=== PATIENT | male | born 1950 | race Caucasian/White ===

== ENCOUNTER → 2024-10-14 09:02 | Outpatient (CLI) | payer MEDICARE, OTHER, SELFPAY ==
--- NOTE | 2024-10-14 09:30 | EKG_ITS ---
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
[2024-10-14 09:31] LABS: Add Manual Diff / Slide Review NO; Hematocrit 46.0 % (41-53); Hemoglobin 16.2 g/dL (13.5-17.5); Lymphocytes Absolute Auto 1200 /uL (1100-4500); Mean Corpuscular HGB Conc 35.3 % (30-36); Mean Corpuscular Hemoglobin 34.6 PG (26-34); Mean Corpuscular Volume 98.0 fL (80-100); Platelet Count 173 X10^3/uL (150-400)
[2024-10-14 09:36] LABS: Hemoglobin A1C% w Est Avg Glu 5.6 % (4.0-6.0)
[2024-10-14 09:49] LABS: Albumin 4.5 g/dL (3.5-5.0); Chloride 105 mmol/L (98-107); Sodium 139 mmol/L (137-145)
[2024-10-14 10:06] LABS: Blood Urea Nitrogen 15 mg/dL (9-20); Calcium 9.5 mg/dL (8.4-10.2); Carbon Dioxide 27 mmol/L (22-32); Estimated Glomerular Filt Rate > 60 mL/min (>60); Glucose 98 mg/dL (70-99); HEMOLYSIS < 15 (0-50); Potassium 4.7 mmol/L (3.4-5.1); Vitamin D 25 Hydroxy (D3) 68.0 ng/mL (30.0-100.0)
[2024-10-14 10:15] LABS: Prealbumin 29.2 mg/dL (17.6-36.0)
== END ==
PROVIDERS: PCP Family Medicine; Referring Provider Orthopaedic Surgery Adult Reconstructive Orthopaedic Surgery; Visit Provider Orthopaedic Surgery Adult Reconstructive Orthopaedic Surgery
DX: Z01.818 Encounter for other preprocedural examination (principal); E11.9 Type 2 diabetes mellitus without complications; E55.9 Vitamin D deficiency, unspecified; Z01.812 Encounter for preprocedural laboratory examination
CPT/HCPCS: 36415; 80048; 82040; 82306; 83036; 84134; 85025; 93005

== ENCOUNTER 2024-12-19 11:48 | Day surgery (SDC) | payer MEDICARE, OTHER, SELFPAY ==
[2024-12-16 12:32] VITALS: BMI 27.5
[2024-12-19] VITALS (10 sets, daily range): BP systolic 95–135; BP diastolic 50–68; PULSE 73–90; RESP 14–19; TEMP 35.4–36.9; O2SAT 94–97; BMI 27.5
--- NOTE | 2024-12-19 | DI.RAD.S_ITS ---
PROCEDURE: XR HIP W PEL IF DONE LT 2V INDICATIONS: LT TOTAL HIP TECHNIQUE: AP pelvis and lateral view of the hip acquired. COMPARISON: [facility], [place], XR PELVIS 1-2V, 10/14/2024, 8:36. [facility], [place], XR HIP W PEL LT 2V, 12/19/2024, 14:58. FINDINGS: Bones: Patient is status post left total hip arthroplasty, with hardware components in expected positions. The hip joint appears congruent. The visualized bony structures appear intact. Soft tissues: Overlying postoperative changes are noted. No suspicious soft tissue densities. IMPRESSION: Expected post-operative appearance of a hip arthroplasty. Dictated by: Darren Bella M.D. on 12/20/2024 at 8:56 Approved by: Darren Bella M.D. on 12/20/2024 at 9:00
--- NOTE | 2024-12-19 07:50 | DI.RAD.S_ITS ---
PROCEDURE: XR HIP W PEL IF DONE LT 2V INDICATIONS: Left total hip arthroplasty. COMPARISON: None. FINDINGS: Seven intraoperative fluoroscopic spot images are submitted for left total hip arthroplasty, reported under separate operative report. Fluoroscopy dosimetry is not delineated. IMPRESSION: Intraoperative fluoroscopy. Dictated by: Harish Martin M.D. on 12/19/2024 at 16:45 Approved by: Harish Martin M.D. on 12/19/2024 at 16:47
[2024-12-19] MEDS: LACTATED RINGERS 1,000 ML 42 ML IV ×2 (12:48→19:05)
[2024-12-19] MEDS: ACETAMINOPHEN 325 MG TABLET 975 MG PO (12:50)
[2024-12-19] MEDS: MELOXICAM 7.5 MG TABLET 15 MG PO (12:50)
--- NOTE | 2024-12-19 13:02 | PM.PREOP ---
Pre-operative Note Interval Note History & Physical reviewed/Exam performed by Physician: Yes Changes to H&P: No
[2024-12-19] MEDS: TRANEXAMIC ACID 1,000 MG VIAL 1000 MG INJ ×2 (14:17→16:01)
--- NOTE | 2024-12-19 14:33 | SUR.OPER ---
Patient supine on padded [place] table, bilateral arms on padded arm boards at <90, both legs secured in padded traction boots and positioned per surgeon, padded post at patient's groin, pressure points checked and padded.
--- NOTE | 2024-12-19 14:40 | SUR.OPER ---
LAVAGE: 118ML HYDROGEN PEROXIDE, 44ML POVIDONE IODINE, NORMAL SALINE
[2024-12-19] MEDS: KETOROLAC 30 MG/ML VIAL IM (14:44)
--- NOTE | 2024-12-19 16:41 | PM.OP.1 ---
Operative Date/Time/Diagnoses Date of procedure: 12/19/24 Time of procedure: 15:00 Pre-op diagnosis: Left hip osteoarthritis Post-op diagnosis: same Procedure & Clinicians Procedure: Left total hip arthroplasty Same procedure(s) as scheduled: Yes Surgeon: Pablo Riley Assisted?: Yes Hide Or Skin Buffer: Noreen Jack Anesthesia Type: Spinal, Sedation and Local Operative Notes Findings: Severe arthritis Closure Type: primary Applied: implant(s) Estimated Blood Loss (mL): 250 Procedure in detail: 1. Left Uncemented Direct Anterior Conor Total Hip Arthroplasty (13288) 2. Computer-Assisted Musculoskeletal Surgical Navigational Orthopedic Procedure Using Fluoroscopic Image Guidance (0054T) Implants: G7 PPS size 56 cup?with a +5 liner Z1 femoral stem size 9 standard offset? 40 mm +3.5 ceramic femoral head? Procedure Summary: This 73-year-old male patient had a very short operative side relative to his nonoperative side coming into surgery so I utilized an offset liner to maximize leg length rastafari. The hip was fairly tight requiring a conjoined tendon release in order to access the femur. I initially trialed with a size 9 broach and found that it was excessively long and also appeared to be in valgus so I went down to a size 8 and trialed with a which was appropriate after I was able to get it further down the canal to reduce the length. On inspecting after trialing I found that the 8 was rotationally unstable and I could sink it even further down the canal so went back to a size 9 and was able to get that to sit at the spot where I had calcar planed from the size 8 before trialing. In this system upsizing the broach does not result in any change to the head or neck parameters so I therefore implanted those trials. Stability was excellent as I was unable to manually dislocate the hip with maximum external rotation of approximately 120? Procedure in Detail: This patient was seen preoperatively and evaluated for hip pain which was refractory to numerous nonoperative treatment modalities. Their hip pain correlated with radiographic changes demonstrating significant degeneration in the hip joint. The risks and benefits of continued nonoperative management versus operative management were discussed at length and all of the patient?s questions were answered. Additional educational materials providing further details beyond our discussion in clinic were provided via a publicly available patient education video which included the incidence of medical complications associated with total hip arthroplasty, reasons for revision following total hip arthroplasty, and patient satisfaction rates following total hip arthroplasty. With this understanding of the risks inherent to the procedure, the patient elected to move forward with operative management. Following preoperative optimization, the patient was scheduled for surgery. The patient was met in the preoperative holding area the day of the procedure and all questions were answered. The patient?s nares were swabbed in order to decolonize them from MRSA. Informed consent was signed and the left limb was marked with indelible ink.? The patient was brought back to the operating room where anesthesia was induced. The patient was transferred to the [place] table and all bony prominences were padded. The operative site was prepped and draped in the usual sterile fashion. Prior to incision, tranexamic acid and cefazolin were administered. Operative templating images were displayed demonstrating the anticipated implant sizes and correct operative extremity. A timeout procedure was performed verifying the patient?s identity, medical comorbidities, allergies, relevant medications, anesthesia type and the surgical plan. All present were in agreement. The assistance of a physician construction administrative assistant was required for positioning, room setup, soft tissue retraction and wound closure. Without this assistance, the procedure would have been significantly more challenging and time consuming.?? A direct anterior approach to the hip was utilized. This was performed with a longitudinal incision through a Heuter interval. The incision was planned 2 cm distal and 2 cm lateral to the ASIS extending towards the lateral patella, in line with the muscle body of the TFL. Following incision, the subcutaneous tissue was dissected while taking care to avoid injury to the lateral femoral cutaneous nerve. The fascia overlying the TFL was identified by dissecting off the overlying fat and identifying perforating vessels to the TFL. The TFL fascia was incised and dissected away from the medial border of the TFL. A retractor was placed over the superior femoral neck between the abductors and the hip capsule and used to reflect the TFL laterally. A Bureau self-retainer was then placed in the distal aspect of the wound between the TFL and the rectus femoris. This was tensioned to open up the direct anterior interval and the lateral circumflex vessels were identified and coagulated using electrocautery. The floor of the TFL fascia was incised, exposing the pericapsular fat overlying the hip capsule. A second cobra retractor was placed on the inferior femoral neck. A retractor was placed on the anterior wall of the acetabulum and used to tension the reflected head of rectus femoris, which was then released in order to limit soft tissue tension. A capsulotomy was made in the midline of the anterior hip capsule in line with the femoral neck ending at the vastus tubercle. The anterior retractor was removed as soon as the capsulotomy was completed in order to limit the amount of time that a soft tissue retractor remained on the anterior wall and limit tension on the femoral nerve. Tag stitches were placed in the superior and inferior leaflets of the hip capsule. An Joey soft tissue retractor was introduced over the tag stitches and tensioned in the interval between the rectus femoris and the TFL in order to retract and protect those muscles. The cobra retractors were replaced intracapsularly, with one over the superior neck in the pocket created by the base of the greater trochanter and the other on the femoral head. The capsulotomy was extended laterally to the base of the greater trochanter and medially to the lesser trochanter. This required externally rotating the hip. Once the lesser trochanter had been identified, a neck cut was planned according to measurements from preoperative templating. A ruler was cut at the length measured between the superior aspect of the lesser trochanter and the collar of the prosthesis. This line was extended towards the inferior aspect of the lateral cobra retractor to plan a cut which would leave minimal residual femoral neck laterally. The neck was cut at 60 degrees of external rotation along that line. A second cut was performed to remove a large napkin ring and facilitate head extraction. The napkin ring cut and femoral head were removed.?? A broad anterior wall retractor was placed between the labrum and the anterior capsule so that the anterior capsule would prevent capturing and pinching the femoral nerve anteriorly. An additional retractor was placed on the posterior wall. External rotation and traction were applied through the [place] table so that the cut surface of the femoral neck would not restrict access to the acetabulum. The labrum was excised sharply and the pulvinar was excised with electrocautery to limit bleeding from branches of the obturator artery. Acetabular reamers were selected based on preoperative templating and measurements of the excised femoral head. These were introduced into the acetabulum. Fluoroscopy was utilized to replicate a standing AP pelvis radiograph by centering over the pelvis, rotating until there was appropriate symmetry between the obturator foramen, and introducing caudal tilt to match the position of the pubic symphysis relative to the sacrococcygeal junction according to the patient?s anatomy. Once satisfied with the reaming depth corresponding to the preoperative template and the pinch fit between the columns, an appropriate sized acetabular cup was selected which would provide 1 mm of press-fit. This cup was introduced and manipulated until appropriate abduction and anteversion angles were obtained with careful attention to appropriate abduction and anteversion angles as evaluated by the position of the cup relative to the anterior and posterior wooten of the acetabulum and the AP fluoroscopy which recreated the patient?s standing radiograph. The cup was impacted into place. Peripheral osteophytes were removed. The acetabular liner was then placed with care to ensure locking of the locking mechanism. Attention was then turned to the femur. All retractors were removed, traction was released, a retractor was placed in the interval between the hip capsule and the gluteus minimus. The lateral capsule was released using electrocautery. Traction was released and a [place] hook was placed posteriorly around the proximal femur at the level of the vastus ridge. The table height was lowered in order to restrict the tension on the anterior structures during hip hyperextension to limit the risk of femoral nerve palsy. With traction off and the hip at 90 degrees of external rotation, the hip was hyperextended and adducted while manually elevating the femur away from the acetabulum with the [place] hook to avoid hooking the greater trochanter on the pelvis. An asymmetric retractor was placed over the calcar and a broad double-pronged retractor was placed over the greater trochanter. The tag stitch capturing the lateral leaflet of the capsule was moved to the medial side, leaving the conjoined and piriformis tendons isolated in the face of the greater trochanter. The hip was externally rotated and elevated. A release of the conjoined tendon was necessary in order to obtain adequate exposure for broaching. The canal was opened with an opening broach and a rasp was used to remove cancellous bone. A rongeur was used to remove the residual lateral bone at the base of the greater trochanter to avoid placing the stem in varus. The femur was then broached to the appropriate sized stem yielding good rotational fit and fill of the canal as well as appropriate version of the stem trial. Neck and head trials were placed, all retractors were removed and the hip was returned to neutral abduction and extension. I then reduced the hip and manually trialed it before changing surgical gloves. Initial trialing was performed with a size 9 broach, a standard offset neck and a +3.5 head. It was very hard to reduce. It was very tight. I initially manually externally rotated the hip and found that I could not rotate past 90?. I then locked the hip in 45 degrees of external rotation and dropped it to the floor with traction off which demonstrated no instability. The ortho grid software was used to create an overlay comparing the nonoperative side of the operative side and this demonstrated almost exactly the same offset but increased leg length on the operative side. AP and lateral hip fluoroscopic images were obtained to evaluate the broach size which demonstrated that the broach was sitting proud relative to where I had planned the calcar to sit and the stem was in valgus. The hip was dislocated and I returned to the broaching position. Based on my evaluation during initial trialing I planned to sink the size 8 broach further down the canal and calcar planed to that point in order to reduce my leg lengths. I did this. I calcar planed approximately 6 mm of additional bone. I repeated the trialing process and still had very good stability. I still required assistance through the [place] table to get the hip reduced as I was unable to reduce it by pushing on the foot. There was no instability with trialing either with maximum external rotation or with a 45 degree drop test. The ortho grid overlay between the operative and nonoperative sides was nearly identical. I therefore planned to place the size. Upon returning of the broach in position I found that the size 8 broach was rotationally unstable within the canal. I was able to sink it further down the canal. I used a size 7 broach as a rasp to remove some additional bone and then went back up to a size 9 stem. I was now able to sink the size 9 broach down to the point where I had calcar planed with the size 8 broach. I then placed definitive implants.. The definitive stem was placed and the trunnion was cleaned and dried. I placed a ceramic head onto the trunnion and impacted it into place on the Eli taper.?? All retractors were removed and the hip was reduced. A dilute mixture of betadine and peroxide was used to bathe the soft tissues during final fluoroscopic assessment. Appropriate component positioning was confirmed on an AP pelvis radiograph with the operative and nonoperative legs in 40 degrees of external rotation, evaluating leg length and offset. Appropriate stem fill was evaluated on AP and lateral hip radiographs. No previously unrecognized fractures were identified on these radiographs. There was no hip instability with maximum (120?) external rotation as well as a 45 degree drop test. The hip was copiously irrigated with pulse lavage. The capsule was closed with absorbable interrupted suture. The TFL fascia was closed with barbed suture while carefully protecting the lateral femoral cutaneous nerve from entrapment. A mixture of Ropivacaine, Epinephrine and Toradol was infiltrated throughout the soft tissues. The skin was closed with 2-0 and 3-0 sutures. Surgical glue was applied and a soft dressing was placed.??The sponge, instrument and needle counts were reported as being correct at the end of the case.??No obvious complications occurred. The patient was transferred from the [place] table back to a stretcher. The patient emerged from anesthesia without difficulty and was taken to the PACU in a stable condition.? Plan for aftercare: No hip precautions Weightbearing as tolerated Aspirin 81 twice per day for DVT prophylaxis Anticipate discharge home tomorrow morning as physical therapy we will have left by the time the patient gets up to the floor Multimodal pain regimen with no IV opioids ordered Follow up at [facility] in 2 weeks Complications: none Post-operative Condition: stable Disposition: PACU
--- NOTE | 2024-12-19 18:39 | PC.NURSE ---
Patient to room 222, he had a l.anterior hip with aquacel in place. He has LR infusing at 100cc/hr. Patient had a spinal and he has feeling now to mid thigh. Sleeping soundly. and sister left for the night.
[2024-12-19] MEDS: ASPIRIN 81 MG CHEW TAB PO (20:15)
[2024-12-19] MEDS: DOCUSATE 100 MG CAPSULE PO (20:15)
[2024-12-19] MEDS: ONDANSETRON 4 MG ODT PO (20:16)
[2024-12-19] MEDS: ACETAMINOPHEN 325 MG TABLET 650 MG PO (20:18)
[2024-12-19] MEDS: IBUPROFEN 600 MG TABLET PO (20:33)
[2024-12-20 00:23] VITALS: BP 103/60; PULSE 69; O2SAT 92
[2024-12-20] MEDS: LACTATED RINGERS 1,000 ML 100 ML IV (01:55)
[2024-12-20] MEDS: ACETAMINOPHEN 325 MG TABLET 650 MG PO ×2 (02:14→08:26)
[2024-12-20] MEDS: IBUPROFEN 600 MG TABLET PO ×2 (02:14→08:22)
--- NOTE | 2024-12-20 03:57 | PC.NURSE ---
0357 RN and clay hoister attempted to obtain 0400 Ancef. Ancef completely out of stock. RN to notify inpatient pharmacy at 0630.
--- NOTE | 2024-12-20 06:47 | P.DS_ITS ---
History of Present Illness History of Present Illness Chief complaint: left SHANA anterior Narrative: 73 year old male with no pertinent past medical history presented to [facility] on 12/19/24 for planned primary anterior left total hip arthroplasty by Dr. Riley. ?This elective procedure was indicated by chronic left hip arthritis limiting their normal activities of enjoyment and living. ?On the date of surgery there were no changes of the medical history, medications or allergies. ?Consent had been obtained and the patient was in agreement to proceed with planned surgery. Discharge Providers Provider Discharge Date: 12/20/24 Primary care physician: Sin Lebron MD Consults: 12/19/24 07:49 Consult to Anesthesiology Routine Comment: Consulting Provider: Anesthesiologist Reason for consultation: Regional block for post operative pain control 12/19/24 19:50 Consult to Discharge Planning Routine Comment: Consult to Physical Therapy Evaluate & Treat Comment: Physician Instructions: Evaluate and Treat Discharge provider: CESAR Segovia Dr, MD Summary Hospital Course Hospital Course: On 12/19/2024 the patient was brought to the operating room with for elective left total hip arthroplasty. There were no immediate intraoperative complications. He was transferred to the PACU and then to the acute Care unit of [facility] for physical therapy and monitoring overnight. Physical therapy was unavailable for evaluation treatment at the end of his case given time constraints. Overnight there were no acute events. On postoperative day 1 his vital signs were stable and pain was well-controlled on oral analgesics. During my evaluation he was waiting assessment and evaluation by physical therapy but eager to return home recordings with preoperative plan. Exam Vital Signs (past 8 hours): - 12/20/24 00:23 Pulse Rate 69 Blood Pressure 103/60 Pulse Oximetry 92 Oxygen Flow Rate 0 Oxygen Delivery Method Room Air Oxygen Flow Rate 0 Narrative Exam Narrative: Well-developed, well-nourished, 73-year-old male, no acute distress. Dressing is dry and intact to left hip without erythema or ecchymosis. Femoral and sciatic nerve function intact. Knee extension intact, ankle dorsiflexion and plantar flexion intact. Neurovascularly intact to light sensation left foot. Palpable dorsalis pedis pulse. Objective Labs Labs: Laboratory Results - last 24 hr 12/19/24 13:01 POC Whole Bld Glucose 69 L [facility] Medical History (Updated 12/17/24 @ 12:50 by Zuri Rod PA-C) Enlarged prostate Stomach ulcer (~2004) Primary osteoarthritis of left hip Surgical History (Updated 12/16/24 @ 13:17 by Yael Jackson RN) History of total left knee replacement (02/2013) H/O vasectomy History of total right knee replacement (07/2012) Hx of tonsillectomy History of bilateral cataract extraction (08/2024) Social History Smoking Status: Never smoker Discharge Assessment & Plan Assessment and Plan Assessment: 73 year old male with no pertinent past medical history is post operative day 1 from a left total hip arthroplasty by Dr. Riley at [facility] on 12/19/24. The patient is recovering well with appropriate pain control on oral analgesics and is awaiting evaluation by physical therapy with plan for discharge home today.? Today he denies chest pain, shortness of breath, nausea, vomiting, fever and chills. He is making urine and was up to bathroom with an assist last night. He is eager to return home after physical therapy this morning. He is doing well in his primary concern is ordering breakfast this morning. He plans to return home today where his will help him recover. Plan:? * Weightbearing as tolerated to left lower extremity with front wheeled walker? * No hip precautions? * DVT prophylaxis with 81 mg of aspirin twice daily for 6 weeks post operatively ? * Continue multimodal analgesia with Tylenol, meloxicam and oxycodone? * Bowel regimen as needed? * Physical therapy evaluation and treatment today? * Follow up with orthopedics 2 weeks post operatively? * All post operative medications ordered at pre operative visit? * Ice to surgical site as needed? Discharge Plan Discharge Plan Patient Disposition: Home Discharge orders & Medications Discharge Orders: Discharge (Order); Ordered 12/20/24 Ordered By: Noreen Jack Prescriptions: Continued tamsulosin 0.4 mg capsule 0.4 mg PO DAILY finasteride 5 mg tablet 5 mg PO DAILY acetaminophen [Tylenol] 325 mg tablet 325 mg PO ONCE PRN (Reason: Pain) fexofenadine [Chayito Allergy] 60 mg tablet 60 mg PO DAILY cholecalciferol (vitamin D3) 25 mcg (1,000 unit) capsule 25 mcg PO DAILY Centrum Silver 0.4 mg-300 mcg- 250 mcg tablet 1 tab PO DAILY pantoprazole 40 mg tablet,delayed release (DR/EC) 40 mg PO DAILY Qty: 30 0RF meloxicam 7.5 mg tablet 7.5 mg PO DAILY Qty: 30 1RF Rx Instructions: Take one tab by mouth daily docusate sodium [Colace] 100 mg capsule 100 mg PO BID PRN (Reason: constipation) Qty: 60 0RF oxycodone 5 mg tablet 5 mg PO Q6H PRN (Reason: pain) Qty: 25 0RF Changed aspirin [Mala Chewable Aspirin] 81 mg tablet,chewable 81 mg PO BID 42 Days Qty: 0 0RF Follow up/Referrals: Pablo Riley MD [Physician, Orthopedic Surgery] Sin Lebron MD [Primary Care Provider, Medical] Diet/Activity/Treatments Diet: Diet as Tolerated and Low-sodium Activity: Weight bearing as tolerated left hip with a walker Limit steps to no more than 1000 steps for the first 7 days after surgery No hip precautions Cold/Heat Therapy: Ice to left hip as instructed pre-operatively Skin/Wound/Dressing Care Report to your healthcare provider any signs of infection, such as:: chills, fever, night sweats, unusual drainage and unusual redness Dressing: Leave the dressing in place to the left hip until follow up in the orthopedic clinic If the dressing becomes saturated or disrupted, please call the office for further guidance Visit Report/Discharge Packet Instructions: DI for Hip Replacement Stand Alone Forms: Patient Portal/API Print Language: Georgian Discharge Data Primary Care Provider: Sin Lebron Attending Provider: Pablo Riley Quality VTE Deep Vein Thrombosis/Pulmonary Embolism Present on Admission: No IH PROFEE Charge Codes Discharge inpatient/observation: 88475
[2024-12-20 08:00] VITALS: BP 117/59; PULSE 70; RESP 18; TEMP 36.2; O2SAT 95
[2024-12-20] MEDS: CHOLECALCIFEROL (VITAMIN D3) 1,000 UNIT TABLET 1000 UNIT PO (08:21)
[2024-12-20] MEDS: DOCUSATE 100 MG CAPSULE PO (08:21)
[2024-12-20] MEDS: TAMSULOSIN 0.4 MG CAPSULE PO (08:21)
[2024-12-20] MEDS: LORATADINE 10 MG TABLET PO (08:21)
[2024-12-20] MEDS: ASPIRIN 81 MG CHEW TAB PO (08:21)
[2024-12-20] MEDS: PANTOPRAZOLE DR 40 MG TABLET PO (08:22)
[2024-12-20] MEDS: FINASTERIDE 5 MG TABLET PO (08:22)
[2024-12-20] MEDS: MULTIVITAMIN 1 TABLET 1 TAB PO (08:22)
--- NOTE | 2024-12-20 09:15 | PT.IIE ---
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 (07/2012) Hx of tonsillectomy Medical History (Last Updated 12/16/24 @ 13:17 by Yael Jackson RN) Enlarged prostate Primary osteoarthritis of left hip Stomach ulcer (~2004) Physical Therapy Inpatient Evaluation/Re-Eval M1 PT/OT-IP Prior Functional Status Start: 12/20/24 13:04 Freq: NEEDED Status: Active Protocol: Document 12/20/24 09:15 AB (Rec: 12/20/24 13:15 AB [id number]) Medical Review Prior Functional Status Medical History Yes Reviewed Communication able to make needs known Mobility and Gait pt stated that he was independent with all mobilities and ambulation without AD Social History Household Members spouse Living Arrangements House Number of Floors ( One Floor Floors) Number of Stairs To 1 step to enter Enter/Railing? Home Environment High Toilet,Walk in Shower Home Equipment Front Wheel Walker,Leg Online Advertising Manager M2 PT-IP Current Condition Start: 12/20/24 13:04 Freq: NEEDED Status: Active Protocol: Document 12/20/24 09:15 AB (Rec: 12/20/24 13:15 AB [id number]) Physical Therapy Current Condition Current Condition Evaluation Date 12/20/24 Treatment Diagnosis s/p L SHANA anterior; difficulty in walking Onset Date 12/19/24 M3 PT-IP Subjective Start: 12/20/24 13:04 Freq: NEEDED Status: Active Protocol: Document 12/20/24 09:15 AB (Rec: 12/20/24 13:15 AB [id number]) Subjective Physical Therapy Visit Type Type Initial Evaluation Visit Start Time 09:15 Visit Stop Time 09:55 Number of TIPPING MACHINE OPERATOR Visits 0 Physical Therapy Visit Comments Patient Comments agreeable to do PT Therapy Pain Assessment Pain When Pain Assessed At Rest Pain Present Pain Present Pain Reported Location Left Hip Intensity 4 Scale Used Numeric (0 - 10) Pain Behaviors Guarding Pain Management Apply Cold,Distraction,Modification of Treatment,Re- Techniques positioning,Timing of Activity with Medications M4 PT-IP Mobility and Gait Start: 12/20/24 13:04 Freq: NEEDED Status: Active Protocol: Document 12/20/24 09:15 AB (Rec: 12/20/24 13:15 AB [id number]) PT-Bed Mobility Assessment Supine to Sit Supine to Sit Standby Assistance Sit to Supine Sit to Supine Standby Assistance PT-Transfer Assessment Sit to and From Stand Sit to and from Contact Guard Assistance,Minimal Assistance,1 Person Stand Assistance,Use of Upper Extremities Equipment Transfer Assistive Gait Belt,Front Wheeled Walker Device Orthotic/Prosthetic No Devices or Brace: Transfers Transfer Destination Bed,Chair Transfer Technique ambulated Transfer Ability Level of Assist Standby Assistance,1 Person Assistance,Use of Upper Extremities Gait Assessment Gait Gait Assistance Standby Assistance,1 Person Assist Required: Distance (Feet) 40 Able to Maintain Yes Weight Bearing Status During Gait Assistive Devices Assistive Device Gait Belt,Front Wheeled Walker Orthotic/Prosthetic No Devices or Brace: Gait Deviations General Gait Pattern Decreased Stride Length,Decreased Feet Clearance Factors Limiting Gait Function Factors Limiting Decreased Activity Tolerance,Decreased Strength, Gait Function Difficulty Following Directions,Limited Range of Motion ,Pain,Poor Balance,Poor Safety Awareness Comments Gait Comments pt sitting on the chair and agreeable to do PT. obtained PLOF and home set up. pt completed sit to stand min A and max cues for techniques. ambulated using FWW to EOB SBA. completed sit<>supine SBA. pt ambulated back to chair using FWW SBA. pt tends to plop on chair during sitting. educated pt on sit<>stand techniques. completed sit <> stand x 5 reps with initial min A and max cues but able to completed SBA without cues on last repetition. pt completed up/down platform step using FWW CGA. pt ambulated back to chair. positioned pt on the chair. call light and table placed within reach. Stair Climbing Assessment Evaluation Level of Assist On Contact Guard Assistance,1 Person Assistance Stairs Devices Stair Climbing Front Wheel Walker Assistive Devices Technique/Endurance Stair Climbing Ascend and Descend Direction Stair Climbing Step to Step Technique Number of Steps 1 Climbed Query Text: Stair Climbing Set # 2 Repetitions (reps) PT-Balance Assessment Sitting Balance and Reactions Static Sitting Normal Balance Ability Dynamic Sitting Good Balance Ability Standing Balance and Reactions Static Standing Fair Balance Ability Dynamic Standing Fair Balance Ability Device Used FWW M5 PT-IP Objective Assessments Start: 12/20/24 13:04 Freq: NEEDED Status: Active Protocol: Document 12/20/24 09:15 AB (Rec: 12/20/24 13:15 AB [id number]) Orientation Orientation/Cognition Level of Alertness Alert Orientation Name,Place,Situation Language Function No Deficits Noted Ability Safety Awareness Decreased Safety Awareness Memory Description Short Term Impaired Gross Range of Motion Lower Extremity ROM Impairments limited B knee flexion Strength Lower Extremity Strength Assessment Left Impaired Hip 3-/5 Knee 4-/5 Sensation Assessment Sensation Gross Sensation Left LE Impaired Sensation Numbness Description Comments Sensation Comments L lateral 3 toe numbness per pt: chronic Muscle Tone Muscle Tone WNL Yes M6 PT-IP Treatment Start: 12/20/24 13:04 Freq: NEEDED Status: Active Protocol: Document 12/20/24 09:15 AB (Rec: 12/20/24 13:15 AB [id number]) Physical Therapy Treatment Education Education Provided Precautions,Weight Bearing Status,Post-Op Packet,Safety M7 PT-IP Assessment and Plan Start: 12/20/24 13:04 Freq: NEEDED Status: Active Protocol: Document 12/20/24 09:15 AB (Rec: 12/20/24 13:15 AB [id number]) PT Summary Assessment and Plan Potential Rehabilitation Fair Potential Status of Condition Stable at Evaluation Summary Impairments Pain,ROM,Strength,Balance,Coordination,Sensation,Bed Mobility,Transfers,Gait,Activity Tolerance Assessment Summary pt is a 73 y/o M s/p L SHANA anterior approach and is WBAT on LLE. pt requiring SBA to CGA with mobility using FWW and plans to go home and spouse to assist him . pt has outpt PT set up. Goals Bed Mobility Goal Independent Transfer Goal Independent,Front Wheeled Walker Gait Goal Independent,Front Wheel Walker Gait Distance 200 Other Goals up/down 1 step using FWW mod I Days to Meet Goals 3 Frequency of Treatment Frequency Of Once a Day Treatment Treatment Plan Physical Therapy Bed Mobility Training,Transfer Training,Gait Training, Treatment Plan Therapeutic Exercise,Balance Retraining,Post Op Education,Discharge Planning,Hot or Cold Pack, Neuromuscular Re-ed,Coordination Retraining,Manual Therapy Weight Bearing Status Weight Bearing Weight Bear as Tolerated Status Allowed Weight LLE WBAT Bearing Amount ( enter % or #) (%) Recommendations To Nursing Amount of Assist 1 Person Assist Needed Discharge Recommendations PT Discharge Home with Assistance,Outpatient PT Recommendations Transportation Needs Private Vehicle at Discharge - PT assist 1
--- NOTE | 2024-12-20 12:06 | PC.NURSE ---
Patient is A&OX4. VSS, afebrile on RA. Dressing to hip C/D/I. PA at bedside evaluating patient. He verbalizes pain levels are tolerable, and able to void, going to BR and being out of bed. He is medically cleared for discharge pending PT/OT eval. He initially is slightly dizzy with a slightly low BP but recovers and is BP WNL after next time ambulating. His is present at discharge and patient acknowledge understanding of activity limitations, Site care, medications and follow up instructions. He is escorted via w/ch with all of his belongings at approximately 11:15 a.m.
--- NOTE | 2024-12-20 12:36 | CM.DANOTE ---
DCP Assessment note pt is a 73yo M POD1 left knee with Dr. Osvaldo NASH reviewed EMR per chart, pt lives indep with spouse in [place]. per RN note ambulating with nursing/able to void. minimal pain. dc orders in. Pt left with spouse prior to being seen by this IT ADMIN P: dc home with OP f/u and spouse support. no CM needs identified at this time. will continue to follow as needed SAAD [place] Discharge Planning/Care Management CM Discharge Assessment Start: 12/19/24 17:43 Freq: Status: Discharge Protocol: Document 12/20/24 12:34 SL (Rec: 12/20/24 12:36 SL [id number]) Discharge Planning Assessment Assigned Discharge SADA Khoury Fire Warden Provider Jose Martin Augustin Insurance Medicare DPOA/Assigned Margie, spouse Designee Name Contact Information [phone] Advance Directives? No Prior Living House Arrangements Household Members spouse Type of Drives own vehicle transporation used prior to admit Independent with ADL Yes 's Is patient alert and Yes oriented? Barriers to No Discharge Discharge Plan Home Referrals Initiated None needed Review Status In Process Please Provide Date 12/20/24 Initial DC Assessment Was Performed Next Review Type Continued Stay Review Pre-Anesthesia Assessment Start: 12/16/24 12:32 Freq: Status: Discharge Protocol: Document 12/16/24 12:32 CAB (Rec: 12/16/24 13:38 CAB [id number]) Pre-Anesthesia Assessment PAC Comment Phone assess 12/16/24 Preferred Name Miki Patient Information Phone Assessment Reviewed Via Assessment Completed Patient,Spouse With Diagnostic Results BMP/CMP,CBC,EKG Comment Labs/EKG @ [facility] 10/14/24 Primary Care [facility] [place] Provider Seen Specialist in Yes Last 12 Months Specialist Seen Orthopedist Primary Language Tuvaluan Preferred Language Tuvaluan Mold Checker Required No Height 181.61 cm Weight 90.718 kg Body Mass Index (BMI 27.5 ) Hearing Ability Normal Visual Impairment No Limitations Visual Assist None Dentition Type Teeth, Natural Present Barriers to Learning None Hx Anesthesia Yes: Trouble with rhythmic breathing per Reactions Hx Family Anesthesia No Reaction Hx Malignant No Hyperthermia Hx Blood No Transfusions Anesthesia Review No Requested Hay Baler No alcohol intake former Smoking Status Never smoker Substance Use Type [ does not use #R] Pain Present Pain Reported Musculoskeletal Abnormal Gait,Back Pain,Difficulty Walking,Joint Pain Symptoms History of Falling ( No Recent or History of ) Patient is No completely paralyzed or completely immobile Mental Status Oriented to own ability Is patient on oxygen No ? Does patient have No GODOY/SOB Hx Sleep Apnea No Currently Taking a No Beta Marcus Can You Climb a Yes Flight of Stairs Without SOB Hx Chest Pain No Hx SOB No Hx Syncope or No Dizziness Anti-Coagulant No Therapy Has a Paper Colorer No Cardiac Testing No Hx Pacemaker/ICD No Pacemaker Rep No Required? Cardiac Clearance No Received Dysphagia No Gastrointestinal None Symptoms Bladder Pattern Nocturia Urinary Catheter No Present Hx Urinary Self No Catheterization Diabetes No HgbA1C 5.6 Date 10/14/24 Hx Drug Resistant No Organism Presence of external Yes: Bilat knee prosthesis, eye IOLs or internal medical devices? Marital Status Lives With spouse Current Living House Arrangements Number of Floors ( One Floor Floors) Number of Stairs To None Enter/Railing? Support System Spouse Does the Patient Yes Have Assistance After Surgery Patient Discharge Return Home Plan Description Comment Pt advised possible overnight length of stay per surgeon Feels Safe in Yes Current Environment Been Physically Hurt No or Threatened By a Person in Current Environment Do you have thoughts None of harming yourself or others? Are you currently No considering suicide? Do you have a plan No Plan to hurt yourself or others? Do You Have Any No Spiritual Beliefs That May Affect Your HC Choices? Do You Have Any No Cultural Practices That May Affect Your HC Choices? Comment Paula Who Can We Speak to Family, friends About Patient's Care Identifying Code for Declines to issue Release of Patient Information Health Care Proxy/ Margie () Next of Kin Health Care Proxy [phone] Phone Number Emergency Contact Margie (), Lisa (sister) Name Emergency Contact Margie: [phone] Lisa: [phone] Phone Number Advance Directives? No Power of Product Responsibility Liaison Yes Power of Product Responsibility Liaison Margie () Name Power of Product Responsibility Liaison [phone] Phone Number PAC Instructions Assistance for 24 hours post-op,Durable medical equipment,Medications to take/avoid,No ETOH/petroleum product on skin DOS,NPO,Post-op transportation,Pre- surgical wash,Sturdy shoes/comfortable clothes,Do not bring valuables and remove jewelry
== END 2024-12-20 11:13 | disposition home or self-care (01) ==
LOC: OR 17:10 → AC 17:13
PROVIDERS: PCP Family Medicine; Referring Provider Orthopaedic Surgery Adult Reconstructive Orthopaedic Surgery; Visit Provider Orthopaedic Surgery Adult Reconstructive Orthopaedic Surgery
PROC: (CPT 27130; principal; 2024-12-19 13:45)
DX: M16.12 Unilateral primary osteoarthritis, left hip (principal); M25.752 Osteophyte, left hip
CPT/HCPCS: 27130; 73502; 76000; 82962; 97116; 97161; 97530; C1776; J0689; J1885; J2250; J2405; J2704; J3010